=== PATIENT | female | born 1965 | race Caucasian/White ===

== ENCOUNTER 2016-11-17 09:55 | Emergency (ER) | payer BC ==
[2016-11-17] MEDS ORDERED: NS 0.9% 1000 ML* 2,000 ML IV ONE (11:07)
[2016-11-17] MEDS ORDERED: Ondansetron INJ* 2 MG/ML VIAL IV ONE (11:20)
[2016-11-17] MEDS ORDERED: diPHENhydraMINE IV* 50 MG/ML 1 ml VIAL (BENADRYL) IV ONE (11:20)
--- NOTE | 2016-11-17 11:20 | ED ---
HPI Febrile Illness - HPI Summary HPI Summary: Pt here w/ possible food poisoning. Drank 2 cartons of chocolate milk 5 days ago (expiration date October 28 2016). Thought it tasted odd but believes chocolate flavor masked this. Following day, developed nausea, vomiting, diarrhea and ab bloating. Fever last night of 103.3F - took a cool bath and acetaminophen which reduced this. She does have seizure d/o for which she takes klonopin - well controlled and no seizures since illness however she does have a migraine which started 3 days ago - Lt sided w/ photophobia. Followed by PCP for these - takes tramadol for "headaches but this doesn't touch migraines". Pain w/ deep breath in ab and head - otherwise, breathing well. Admits to missing meds 1 day a couple of days ago but has taken all meds today (ie. prozac , klonopin, etc) - History of Current Complaint Chief Complaint: EDAbdPain Time Seen by Provider: 11/17/16 10:26 Hx Obtained From: Patient, Family/Customer Success Specialist - Pain Intensity: 10 - Allergy/Home Medications Allergies/Adverse Reactions: Allergies Allergy/AdvReac Type Severity Reaction Status Date / Time Erythromycin Allergy Severe Difficulty Verified 12/12/15 11:43 Breathing Bupropion [From Wellbutrin] Allergy seizure Verified 12/12/15 11:43 Home Medications: Home Medications ALPRAZolam TAB* [Xanax TAB*] 0.5 - 1 mg PO BEDTIME PRN 11/17/16 [History Confirmed 11/17/16] FLUoxetine CAP* [PROzac CAP*] 80 mg PO DAILY 11/17/16 [History Confirmed ] clonazePAM TAB(*) [KlonoPIN TAB(*)] 1 - 2 mg PO TID PRN 11/17/16 [History Confirmed 11/17/16] traMADol TAB* [Ultram*] 50 - 150 mg PO BEDTIME PRN 11/17/16 [History Confirmed 11/17/16] PMH/Surg Hx/FS Hx/Imm Hx Previously Healthy: Yes - sinus infection 1 month ago - tx'd w/ doxycycline Endocrine/Hematology History: Denies: Hx Anticoagulant Therapy, Hx Diabetes, Hx Systemic Lupus Erythematosus, Hx Thyroid Disease, Autoimmune Disease, Other Endocrine/ Hematological Disorders Cardiovascular History: Denies: Hx Hypertension, Hx Pacemaker/ICD, Other Cardiovascular Problems/ Disorders Respiratory History: Denies: Hx Asthma, Hx Chronic Obstructive Pulmonary Disease (COPD), Other Respiratory Problems/Disorders GI History: Denies: Hx Ulcer, Other GI Disorders History: Denies: Hx Dialysis, Hx Renal Disease, Other Problems/Disorders Musculoskeletal History: Denies: Hx Rheumatoid Arthritis, Other Musculoskeletal History Sensory History: Denies: Other Sensory Impairments Opthamlomology History: Denies: Other Sensory Impairments Neurological History: Reports: Hx Headaches, Hx Migraine, Hx Seizures, Other Neuro Impairments/Disorders - tourette's d/o Denies: Hx Dementia Psychiatric History: Reports: Hx Anxiety, Hx Depression Denies: Hx Substance Abuse - Cancer History Cancer Type, Location and Year: 1992 Cervical CA Hx Chemotherapy: No - Surgical History Surgery Procedure, Year, and Place: 1992 cervical CA surgery. 2002 Removal of fallopian tube and ovary (right) and hysterectomy Infectious Disease History: Yes Infectious Disease History: Denies: Hx Hepatitis, Hx Human Immunodeficiency Virus (HIV), Traveled Outside the [place] in Last 30 Days - Family History Known Family History: Positive: Other - bone cancer, liver cancer Negative: Cardiac Disease - Social History Occupation: Unemployed Lives: With Family Alcohol Use: None Hx Substance Use: No Substance Use Type: Reports: None Hx Tobacco Use: No Smoking Status (MU): Never Smoked Tobacco Review of Systems Positive: Fever, Chills, Fatigue Eyes: Negative Negative: Sore Throat, Ear Ache - Lt side - from headache vs. residual URI?, Nasal Discharge Negative: Palpitations Negative: Shortness Of Breath, Cough Gastrointestinal: Other - see HPI Positive: no symptoms reported Musculoskeletal: Negative - no neck pain Skin: Negative Positive: Headache, Weakness - generalized - no focal deficits reported Positive: Anxious All Other Systems Reviewed And Are Negative: Yes Physical Exam Triage Information Reviewed: Yes Vital Signs On Initial Exam: Initial Vitals Temp Pulse Resp BP Pulse Ox 100.0 F 79 20 95/65 96 11/17/16 10:01 11/17/16 10:01 11/17/16 10:01 11/17/16 10:01 11/17/16 10:01 Vital Signs Reviewed: Yes Appearance: Positive: Ill-Appearing, Pain Distress - [place] Coma Scale Coma Scale Total: 15 Diagnostics - Vital Signs Vital Signs Temp Pulse Resp BP Pulse Ox 11/17/16 10:01 100.0 F 79 20 95/65 96 - Laboratory Result Diagrams: 11/17/16 11:19 11/17/16 11:19 Lab Statement: Any lab studies that have been ordered have been reviewed, and results considered in the medical decision making process. Re-Evaluation - Re-Evaluation First Eval Change: Unchanged - s/p benadryl and zofran - will allow to complete IVF and try toradol Second Eval Change: Improved - IVF and toradol are "taking the edge off" - will try PO acetaminophen; labs are unremarkable for sepsis or severe dehydration Third Eval Change: Improved - migraine resolved after oxycodone and acetaminophen 975mg as well as tolerating PO applesauce and jello - pt reports she wants to go home - feeling better Course/Dx - Course Course Of Treatment: Pt presents with 4 day h/o vomiting and diarrhea after drinking milk 5 days ago. She had a fever last night of 103F - broke w/ acetaminophen and cool bath. Here today as she can't tolerate PO and was concerned about fever last night. She feels dehydrated and has an intractable migraine. Labs were assessed and returned normal except for slightly depleted chloride and low platelets 122. She does not appear to have sepsis nor GI abnormality re: liver, pancreas, etc. Over the course of stay, she improved w/ meds and IVF - able to tolerate PO soft foods and is hungry to eat more. Would like to go home as she feels better (pt appears better as well - color is better in general, appears more energetic and comfortable - sitting up more, etc). [place] lives [place] up the [place] and states she will return to ED if sx return or new sx present. Encouraged to stay hydrated - clears and soft foods for 24-48 hours and proceed to routine diet as tolerated. Follow-up with PCP to further review migraines if these continue to be poorly controlled w/ home meds - may benefit from neurology review. - Diagnoses Provider Diagnoses: Dehydration, Nausea vomiting and diarrhea, Migraine Discharge - Discharge Plan Condition: Stable Disposition: HOME Prescriptions: Ondansetron ODT TAB* [Zofran 4 MG Odt TAB*] 4 mg PO Q8H PRN #3 tab.odt PRN Reason: Nausea Patient Education Materials: Dehydration (ED), Gastroenteritis (ED), Migraine Headache (ED) Referrals: Todd Rock MD [Primary Care Provider] - Additional Instructions: Stay hydrated with clears and soft foods for 24-48 hours and proceed to routine diet as tolerated. You may take anti-nausea medication as needed to keep fluids down and reduce repeat of dehydration. Follow-up with PCP to further review migraines if these continue to be poorly controlled with home meds - may benefit from neurology review. Call tomorrow to schedule appointment. *If you develop return of fever, vomiting, diarrhea, headache, neck pain, rash or abdominal pain, return to ED
[2016-11-17 11:35] LABS: Hematocrit 40 % (35-47); Hemoglobin 13.3 g/dl (12.0-16.0); Mean Corpuscular HGB Conc 34 g/dl (31-36); Mean Corpuscular Hemoglobin 32 pg (27-31); Mean Corpuscular Volume 96 fL (80-97); Mean Platelet Volume 8 um3 (7.4-10.4); Red Blood Count 4.13 10^6/ul (4.0-5.4); Red Cell Distribution Width 13 % (10.5-15); White Blood Count 4.5 10^3/ul (3.5-10.8)
[2016-11-17 11:45] LABS: Albumin 3.9 g/dL (3.2-5.2); BUN/Creatinine Ratio 24.1 (8-20); C Reactive Protein 166.02 mg/L (< 5.00); Calcium 8.9 mg/dL (8.6-10.3); EGFR African American 142.1 (>60); EGFR Non-African American 110.5 (>60); Potassium 3.6 mmol/L (3.5-5.0); Total Bilirubin 0.4 mg/dL (0.2-1.0); Total Protein 6.9 g/dL (6.4-8.9)
--- NOTE | 2016-11-17 11:49 | RAD ---
Indication: Chest pain. Single frontal view of the chest performed at 1125 hours was reviewed. Comparison is made with previous exam dated May 14, 2011. No mediastinal shift is noted. Heart is of normal size and configuration. Lung huynh appear clear. IMPRESSION: NO ACTIVE CARDIOPULMONARY DISEASE IS NOTED.
[2016-11-17] MEDS ORDERED: Ketorolac INJ* 30 MG/ML 1 ML VIAL IV PUSH ONE (12:48)
[2016-11-17] MEDS ORDERED: Acetaminophen TAB* 325 MG PO ONE (14:23)
[2016-11-17] MEDS ORDERED: oxyCODONE TAB* 5 MG TAB PO ONE (15:16)
[2016-11-17 15:18] LABS: Urine Bacteria Absent (Absent); Urine Bilirubin Negative (Negative); Urine Glucose Negative (Negative); Urine Nitrite Negative (Negative)
[2016-11-17 17:20] VITALS: BP 100/58
== END 2016-11-17 17:17 | disposition home or self-care (01) ==
LOC: ED 09:55
DX: E86.0 Dehydration (principal); R11.2 Nausea with vomiting, unspecified; R19.7 Diarrhea, unspecified; G43.909 Migraine, unspecified, not intractable, without status migrainosus; R53.1 Weakness; R50.9 Fever, unspecified; F41.9 Anxiety disorder, unspecified
CPT/HCPCS: 36415; 71010; 80053; 81003; 81015; 82150; 83605; 83690; 85025; 85610; 85730; 86140; 87040; 96374; 96375; 99283; A9270-GY; J1200; J1885; J2405

== ENCOUNTER 2016-11-18 10:21 | Emergency (ER) | payer BC ==
[2016-11-18] MEDS ORDERED: Metoclopramide IV* 5 MG/ML 2 ML VIAL IV ONE (11:30)
[2016-11-18] MEDS ORDERED: Morphine INJ* 4 MG/ML 1 ML SYRINGE IV ONE (11:30)
[2016-11-18] MEDS ORDERED: diPHENhydraMINE IV* 50 MG/ML 1 ml VIAL (BENADRYL) IV ONE (11:30)
[2016-11-18] MEDS ORDERED: NS 0.9% 1000 ML* 2,000 ML IV ONE (11:30)
[2016-11-18 12:24] LABS: Hematocrit 33 % (35-47); Mean Corpuscular HGB Conc 34 g/dl (31-36); Mean Corpuscular Hemoglobin 32 pg (27-31); Mean Corpuscular Volume 96 fL (80-97); Mean Platelet Volume 8 um3 (7.4-10.4); Red Cell Distribution Width 13 % (10.5-15)
[2016-11-18 12:36] LABS: Albumin 3.4 g/dL (3.2-5.2); BUN/Creatinine Ratio 26.2 (8-20); Calcium 8.5 mg/dL (8.6-10.3); EGFR African American 206.2 (>60); EGFR Non-African American 160.4 (>60); Globulin 2.8 g/dL (2-4); Potassium 3.2 mmol/L (3.5-5.0); Total Bilirubin 0.4 mg/dL (0.2-1.0); Total Protein 6.2 g/dL (6.4-8.9)
[2016-11-18 12:51] LABS: Urine Bilirubin Negative (Negative); Urine Glucose Negative (Negative); Urine Nitrite Negative (Negative)
--- NOTE | 2016-11-18 13:08 | RAD ---
HISTORY: Headache COMPARISONS: MRI dated July 27, 2002 TECHNIQUE: Multiple contiguous axial CT scans were obtained of the head without intravenous contrast. FINDINGS: HEMORRHAGE/INFARCT: There is no hemorrhage or acute infarct. MASSES/SHIFT: There is no mass or shift. EXTRA-AXIAL SPACES: There are no extra-axial fluid collections. SULCI AND VENTRICLES: There is prominence of the extra axial space along the frontal convexities bilaterally. This is developed compared to the 2003 CT examination CEREBRUM: As noted above, there is prominence of the extra-axial space along the frontal convexities bilaterally suggestive of volume loss of the frontal lobes BRAINSTEM: There are no focal parenchymal abnormalities. CEREBELLUM: There are no focal parenchymal abnormalities. VESSELS: The vessels are grossly normal. PARANASAL SINUSES: The paranasal sinuses are clear. ORBITS: The orbits are unremarkable. BONES AND SOFT TISSUE: No bone or soft tissue abnormalities are noted. OTHER: None IMPRESSION: 1. NO ACUTE INTRACRANIAL PATHOLOGY. 2. WHEN COMPARED TO THE 2003 MRI EXAMINATION, THERE ARE FINDINGS SUGGESTIVE OF VOLUME LOSS OF THE FRONTAL LOBES BILATERALLY. WHILE THIS NONSPECIFIC, THE DIFFERENTIAL INCLUDES VOLUME LOSS ASSOCIATED WITH FRONTAL LOBE SYNDROMES
--- NOTE | 2016-11-18 13:13 | RAD ---
INDICATION: Headache and neck pain greatest on RIGHT side and at base of neck. Migraine headache. COMPARISON: No relevant prior exams available on the [facility] for comparison. TECHNIQUE: Multidetector CT images foramen magnum to lung apices without contrast. Multiplanar reformation. REPORT: Foci of gas within the bilateral internal jugular veins likely related to venipuncture. Normal vertebral alignment accounting for exam positioning without spondylolisthesis or subluxation at any level. Negative for cervical vertebral body or posterior element fracture. Negative for paravertebral hematoma. Mild C5-C6 disc space narrowing and vertebral endplate osteophytosis. Multilevel mild facet joint osteoarthritis. Negative for acquired spinal stenosis. IMPRESSION: 1. No traumatic injury of the cervical spine. 2. Mild C5-C6 degenerative spondylosis and multilevel mild facet joint osteoarthritis. No CT evidence for acquired spinal stenosis.
[2016-11-18 13:33] LABS: Erythrocyte Sed Rate 73 mm/Hr (0-14)
[2016-11-18] MEDS ORDERED: Potassium Chlor TAB* 20 MEQ TAB.ER PO ONE (13:47)
[2016-11-18 15:15] VITALS: BP 90/62
--- NOTE | 2016-11-19 08:44 | ED ---
Mathew Andrade Alfonso, scribed for Jerod Berrios MD on 11/18/16 at 1111 . Headache - HPI Summary HPI Summary: This patient is a 50 year old F presenting to [facility] accompanied by with a chief complaint of worsening diffuse headaches since yesterday. The CC is described as worsening and radiating to the neck. Pt rates the pain 9/10 in severity. Symptoms aggravated by movement and bright light. Sx alleviated by position. Pt reports fever, chills, abd pain, nausea, diarrhea, neck pain, weakness, and dizziness. Pt was discharged from [facility] yesterday with provider diagnoses of dehydration, nausea, vomiting, diarrhea, and migraine. PMHx of cluster migraines and anxiety. - History Of Current Complaint Chief Complaint: EDGeneral Stated Complaint: NECK PAIN/ABD PAIN/HEADACHE Time Seen by Provider: 11/18/16 10:52 Hx Obtained From: Patient Onset/Duration: Sudden Onset, Started days ago - Yesterday, Worse Since Currently Pain Is: Current Pain Scale(0-10)= - 9/10, Severe Timing: Constant Location of Headache: Diffuse Radiates to: Neck Aggravating Factor: Bright Lights, Other - Movement Allevating Factors: Position Change Associated Signs And Symptoms: Other (Noted In Comments) - Positive fever, chills, abd pain, nausea, diarrhea, neck pain, weakness, and dizziness. - Allergies/Home Medications Allergies/Adverse Reactions: Allergies Allergy/AdvReac Type Severity Reaction Status Date / Time Erythromycin Allergy Severe Difficulty Verified 12/12/15 11:43 Breathing Bupropion [From Wellbutrin] Allergy seizure Verified 12/12/15 11:43 PMH/Surg Hx/FS Hx/Imm Hx Endocrine/Hematology History: Denies: Hx Anticoagulant Therapy, Hx Diabetes, Hx Systemic Lupus Erythematosus, Hx Thyroid Disease, Other Endocrine/Hematological Disorders Cardiovascular History: Denies: Hx Hypertension, Hx Pacemaker/ICD, Other Cardiovascular Problems/ Disorders Respiratory History: Denies: Hx Asthma, Hx Chronic Obstructive Pulmonary Disease (COPD), Other Respiratory Problems/Disorders GI History: Denies: Hx Ulcer, Other GI Disorders History: Denies: Hx Dialysis, Hx Renal Disease, Other Problems/Disorders Musculoskeletal History: Denies: Hx Rheumatoid Arthritis, Other Musculoskeletal History Sensory History: Denies: Other Sensory Impairments Opthamlomology History: Denies: Other Sensory Impairments Neurological History: Reports: Hx Headaches, Hx Migraine, Hx Seizures, Other Neuro Impairments/Disorders - tourette's d/o Denies: Hx Dementia Psychiatric History: Reports: Hx Anxiety, Hx Depression Denies: Hx Substance Abuse - Cancer History Cancer Type, Location and Year: 1992 Cervical CA Hx Chemotherapy: No - Surgical History Surgery Procedure, Year, and Place: 1992 cervical CA surgery. 2002 Removal of fallopian tube and ovary (right) and hysterectomy Infectious Disease History: Yes Infectious Disease History: Denies: Hx Hepatitis, Hx Human Immunodeficiency Virus (HIV), Traveled Outside the [place] in Last 30 Days - Family History Known Family History: Positive: Other - bone cancer, liver cancer Negative: Cardiac Disease - Social History Alcohol Use: None Hx Substance Use: No Substance Use Type: Reports: None Hx Tobacco Use: No Smoking Status (MU): Never Smoked Tobacco Review of Systems Positive: Fever, Chills Positive: Abdominal Pain, Diarrhea, Nausea Positive: Other - Positive neck pain, Neurological: Other - Positive dizziness Positive: Headache - Diffuse, Weakness All Other Systems Reviewed And Are Negative: Yes Physical Exam - Summary Physical Exam Summary: VITAL SIGNS: Reviewed. GENERAL: ~Patient is a well-developed and anxious female who is lying in the stretcher. ~Patient is some distress secondary to neck pain. HEAD AND FACE: No signs of trauma. ~No ecchymosis, hematomas or skull depressions. No sinus tenderness. EYES: PERRLA, EOMI x 2, No injected conjunctiva, no nystagmus. No photophobia. EARS: Hearing grossly intact. Ear canals and tympanic membranes are within normal limits. MOUTH: Oropharynx within normal limits. NECK: Supple, trachea is midline, no adenopathy, no JVD, no carotid bruit, no c- spine tenderness, neck with full ROM. No meningeal signs, no Kernig's or brudzinskis signs. Bilateral sternocleidomastoid tenderness. CHEST: Symmetric, no tenderness at palpation LUNGS: Clear to auscultation bilaterally. No wheezing or crackles. CVS: Regular rate and rhythm, S1 and S2 present, no murmurs or gallops appreciated. ABDOMEN: Soft, non-tender. No signs of distention. No rebound no guarding, and no masses palpated. Bowel sounds are normal. EXTREMITIES: FROM in all major joints, no edema, no cyanosis or clubbing. NEURO: Alert and oriented x 3. No acute neurological deficits. Speech is normal and follows commands. SKIN: Dry and warm Triage Information Reviewed: Yes Vital Signs On Initial Exam: Initial Vitals Temp Pulse Resp BP Pulse Ox 98 F 72 22 94/66 98 11/18/16 10:23 11/18/16 10:23 11/18/16 10:23 11/18/16 10:23 11/18/16 10:23 Vital Signs Reviewed: Yes - [place]arson Coma Scale Coma Scale Total: 15 Diagnostics - Vital Signs Vital Signs Temp Pulse Resp BP Pulse Ox 11/18/16 10:54 97.6 F 66 18 106/64 96 11/18/16 10:23 98 F 72 22 94/66 98 - Laboratory Lab Results: Lab Results 11/18/16 11/18/16 11/18/16 Range/Units 12:00 12:00 12:00 WBC 5.0 (3.5-10.8) 10^3/ul RBC 3.40 L (4.0-5.4) 10^6/ul Hgb 11.0 L (12.0-16.0) g/dl Hct 33 L (35-47) % MCV 96 (80-97) fL MCH 32 H (27-31) pg MCHC 34 (31-36) g/dl RDW 13 (10.5-15) % Plt Count 127 L (150-450) 10^3/ul MPV 8 (7.4-10.4) um3 Neut % (Auto) 76.5 (38-83) % Lymph % (Auto) 15.6 L (25-47) % [place] % (Auto) 7.7 (1-9) % Eos % (Auto) 0 (0-6) % Baso % (Auto) 0.2 (0-2) % Absolute Neuts (auto) 3.8 (1.5-7.7) 10^3/ul Absolute Lymphs (auto) 0.8 L (1.0-4.8) 10^3/ul Absolute Monos (auto) 0.4 (0-0.8) 10^3/ul Absolute Eos (auto) 0 (0-0.6) 10^3/ul Absolute Basos (auto) 0 (0-0.2) 10^3/ul Absolute Nucleated RBC 0 10^3/ul Nucleated RBC % 0 ESR 73 H (0-14) mm/Hr INR (Anticoag Therapy) (0.89-1.11) APTT (26.0-36.3) seconds Carbon Monoxide Screen (<3.5) % Sodium 136 (133-145) mmol/L Potassium 3.2 L (3.5-5.0) mmol/L Chloride 99 L (101-111) mmol/L Carbon Dioxide 29 (22-32) mmol/L Anion Gap 8 (2-11) mmol/L BUN 11 (6-24) mg/dL Creatinine 0.42 L (0.51-0.95) mg/dL Est GFR ( Amer) 206.2 (>60) Est GFR (Non-Af Amer) 160.4 (>60) BUN/Creatinine Ratio 26.2 H (8-20) Glucose 113 H (70-100) mg/dL Lactic Acid 0.6 (0.5-2.0) mmol/L Calcium 8.5 L (8.6-10.3) mg/dL Total Bilirubin 0.40 (0.2-1.0) mg/dL AST 36 (13-39) U/L ALT 49 (7-52) U/L Alkaline Phosphatase 107 H (34-104) U/L Total Protein 6.2 L (6.4-8.9) g/dL Albumin 3.4 (3.2-5.2) g/dL Globulin 2.8 (2-4) g/dL Albumin/Globulin Ratio 1.2 (1-3) Urine Color Urine Appearance Urine pH (5-9) Ur Specific [place] (1.010-1.030) Urine Protein (Negative) Urine Ketones (Negative) Urine Blood (Negative) Urine Nitrate (Negative) Urine Bilirubin (Negative) Urine Urobilinogen (Negative) Ur Leukocyte Esterase (Negative) Urine Glucose (Negative) 11/18/16 11/18/16 11/18/16 Range/Units 12:00 12:20 13:10 WBC (3.5-10.8) 10^3/ul RBC (4.0-5.4) 10^6/ul Hgb (12.0-16.0) g/dl Hct (35-47) % MCV (80-97) fL MCH (27-31) pg MCHC (31-36) g/dl RDW (10.5-15) % Plt Count (150-450) 10^3/ul MPV (7.4-10.4) um3 Neut % (Auto) (38-83) % Lymph % (Auto) (25-47) % [place] % (Auto) (1-9) % Eos % (Auto) (0-6) % Baso % (Auto) (0-2) % Absolute Neuts (auto) (1.5-7.7) 10^3/ul Absolute Lymphs (auto) (1.0-4.8) 10^3/ul Absolute Monos (auto) (0-0.8) 10^3/ul Absolute Eos (auto) (0-0.6) 10^3/ul Absolute Basos (auto) (0-0.2) 10^3/ul Absolute Nucleated RBC 10^3/ul Nucleated RBC % ESR (0-14) mm/Hr INR (Anticoag Therapy) 1.05 (0.89-1.11) APTT 29.1 (26.0-36.3) seconds Carbon Monoxide Screen 3.5 H (<3.5) % Sodium (133-145) mmol/L Potassium (3.5-5.0) mmol/L Chloride (101-111) mmol/L Carbon Dioxide (22-32) mmol/L Anion Gap (2-11) mmol/L BUN (6-24) mg/dL Creatinine (0.51-0.95) mg/dL Est GFR ( Amer) (>60) Est GFR (Non-Af Amer) (>60) BUN/Creatinine Ratio (8-20) Glucose (70-100) mg/dL Lactic Acid (0.5-2.0) mmol/L Calcium (8.6-10.3) mg/dL Total Bilirubin (0.2-1.0) mg/dL AST (13-39) U/L ALT (7-52) U/L Alkaline Phosphatase (34-104) U/L Total Protein (6.4-8.9) g/dL Albumin (3.2-5.2) g/dL Globulin (2-4) g/dL Albumin/Globulin Ratio (1-3) Urine Color Yellow Urine Appearance Clear Urine pH 6.0 (5-9) Ur Specific [place] 1.020 (1.010-1.030) Urine Protein Negative (Negative) Urine Ketones Negative (Negative) Urine Blood Negative (Negative) Urine Nitrate Negative (Negative) Urine Bilirubin Negative (Negative) Urine Urobilinogen Negative (Negative) Ur Leukocyte Esterase Negative (Negative) Urine Glucose Negative (Negative) Result Diagrams: 11/18/16 12:00 11/18/16 12:00 Lab Statement: Any lab studies that have been ordered have been reviewed, and results considered in the medical decision making process. - CT Brain CT CT Interpretation Completed By: Radiologist - 1. NO ACUTE INTRACRANIAL PATHOLOGY. 2. WHEN COMPARED TO THE 2003 MRI EXAMINATION, THERE ARE FINDINGS SUGGESTIVE OF VOLUME LOSS OF THE FRONTAL LOBES BILATERALLY. WHILE THIS NONSPECIFIC, THE DIFFERENTIAL INCLUDES VOLUME LOSS ASSOCIATED WITH FRONTAL LOBE SYNDROMES C-Spine CT CT Interpretation Completed By: Radiologist - 1. No traumatic injury of the cervical spine. 2. Mild C5-C6 degenerative spondylosis and multilevel mild facet joint osteoarthritis. No CT evidence for acquired spinal stenosis. - EKG 1145 Cardiac Rate: NL - BPM 63 EKG Rhythm: Sinus Rhythm EKG Interpretation: No ST elevation Headache Course/Dx - Course Course Of Treatment: This patient is a 50 year old F presenting to [facility] accompanied by with a chief complaint of worsening diffuse headaches since yesterday. The CC is described as worsening and radiating to the neck. Pt rates the pain 9/10 in severity. Symptoms aggravated by movement and bright light. Sx alleviated by position. Pt reports fever, chills, abd pain, nausea, diarrhea, neck pain, weakness, and dizziness. Pt was discharged from [facility] yesterday with provider diagnoses of dehydration, nausea, vomiting, diarrhea, and migraine. PMHx of cluster migraines and anxiety. Assessment/Plan: Test results show slight anemia. Potassium of 3.2 for which patient was given potassium chloride. Glucose 113. Urinalysis negative for UTI. I decided to do a CT of brain and neck because the patient was having neck and headaches. Pt has a history of migraine headaches but these are different headaches. Brain CT reveals 1. NO ACUTE INTRACRANIAL PATHOLOGY. 2. WHEN COMPARED TO THE 2003 MRI EXAMINATION, THERE ARE FINDINGS SUGGESTIVE OF VOLUME LOSS OF THE FRONTAL LOBES BILATERALLY. WHILE THIS NONSPECIFIC, THE DIFFERENTIAL INCLUDES VOLUME LOSS ASSOCIATED WITH FRONTAL LOBE SYNDROMES C-Spine CT reveals 1. No traumatic injury of the cervical spine. 2. Mild C5-C6 degenerative spondylosis and multilevel mild facet joint osteoarthritis. No CT evidence for acquired spinal stenosis. I am not worried about meningitis because patient does not have a fever or meningeal signs. Patient was dealing with diarrhea, so stool culture were order, which were negative for C diff. Patient given iv fluid , Reglan, Benadryl and morphine. After this treatment, symptoms have resolved. Patient reports no neck pain or headache. Patient is ambulating without normal gait and reports she is feeling better. Therefore, I discussed my findings with the patient and she will be d/c home with PCP follow up. I instructed the patient if she develops any increase in fever, neck pain, headache, photophobia , or any other symptoms to return to the ED immediately. Pt is hemodynamically stable and A&Ox3. - Diagnoses Differential Diagnosis/HQI/PQRI: Migraine, Tension Headache, Other - Nausea, vomiting and diarrhea. Provider Diagnoses: Diarrhea, Headache, Neck pain Discharge - Discharge Plan Condition: Stable Disposition: HOME Prescriptions: Hydrocodone-Acetaminophen [[place] 5-325 mg] 1 tab PO Q6H PRN #10 tab MDD 4 tabs / day PRN Reason: Pain Methocarbamol [Robaxin-750 MG TAB] 750 mg PO TID #9 tab Patient Education Materials: Acute Diarrhea (ED), Acute Headache (ED), Acute Neck Pain (ED) Referrals: Todd Rock MD [Primary Care Provider] - 2 Days The documentation as recorded by the Mathew regalado Alfonso accurately reflects the service I personally performed and the decisions made by me, Jerod Berrios MD.
== END 2016-11-18 15:45 | disposition home or self-care (01) ==
LOC: ED 10:21
DX: R19.7 Diarrhea, unspecified (principal); R51 Headache; M54.2 Cervicalgia; R50.9 Fever, unspecified; R10.9 Unspecified abdominal pain; R11.0 Nausea; R53.1 Weakness; R42 Dizziness and giddiness
CPT/HCPCS: 36415; 70450; 72125; 80053; 81003; 82375; 83605; 83630; 85025; 85610; 85652; 85730; 87040; 87045; 87046; 87493; 93005; 96374; 96375; 99283; A9270-GY; J1200; J2270

== ENCOUNTER 2016-12-06 12:42 | Inpatient (IN) | payer BC ==
[2016-12-06 15:47] LABS: Hematocrit 41 % (35-47); Hemoglobin 13.4 g/dl (12.0-16.0); Mean Corpuscular HGB Conc 33 g/dl (31-36); Mean Corpuscular Hemoglobin 32 pg (27-31); Mean Corpuscular Volume 98 fL (80-97); Mean Platelet Volume 8 um3 (7.4-10.4); Red Blood Count 4.24 10^6/ul (4.0-5.4); Red Cell Distribution Width 14 % (10.5-15); White Blood Count 6.7 10^3/ul (3.5-10.8)
[2016-12-06] MEDS ORDERED: NS 0.9% 1000 ML* 1,000 ML IV ONE (16:59)
[2016-12-06] MEDS ORDERED: HYDROmorphone* 1 MG/ML 1 ML SYR IV SLOW PU ONE ×2 (16:59→18:39)
[2016-12-06] MEDS ORDERED: Ondansetron INJ* 2 MG/ML VIAL IV ONE (16:59)
[2016-12-06] MEDS ORDERED: HYDROmorphone* 1 MG/ML 1 ML SYR IM ONE (17:11)
[2016-12-06 17:55] LABS: Albumin 3.9 g/dL (3.2-5.2); BUN/Creatinine Ratio 23.4 (8-20); C Reactive Protein 57.29 mg/L (< 5.00); Calcium 9.6 mg/dL (8.6-10.3); EGFR African American 180.4 (>60); EGFR Non-African American 140.3 (>60); Globulin 4.3 g/dL (2-4); Total Bilirubin 0.4 mg/dL (0.2-1.0); Total Protein 8.2 g/dL (6.4-8.9)
[2016-12-06] MEDS ORDERED: cefTRIAXone VIAL(*) 1,000 MG in NS 0.9% 50 ML* 50 ML IVPB ONE (18:45)
--- NOTE | 2016-12-06 18:56 | ED ---
Angeles Andrade Edward, scribed for Cookie Nascimento MD on 12/06/16 at 1622 . Abdominal Pain/Female - HPI Summary HPI Summary: 51 y/o female presents to ED c/o ABD pain for the past 2 weeks ago. The patient also c/o vomiting and 1x diarrhea. The patient was admitted in the ED 2 weeks ago for the same symptoms. Since leaving the ED 2 weeks ago, the patient has not had a bowel movements in 10 days. Associated sx: lower back pain that shoots down the legs, fevers (high 101.7), and neck pain. Denies dysuria. no smoker, drugs, etoh. PMHx turrets, migraines - History of Current Complaint Chief Complaint: EDAbdPain Stated Complaint: ABD PAIN Hx Obtained From: Patient Onset/Duration: Gradual Onset, Lasting Weeks - 2 weeks Timing: Constant Severity Currently: Severe Pain Intensity: 10 Pain Scale Used: 0-10 Numeric Location: Diffuse Associated Signs and Symptoms: Positive: Fever, Back Pain - Shoots down to bilateral legs, Constipation - No bowel movements in 10 days, Nausea, Vomiting, Diarrhea, Other: - Neck pain. Negative: Urinary Symptoms Allergies/Adverse Reactions: Allergies Allergy/AdvReac Type Severity Reaction Status Date / Time Erythromycin Allergy Severe Difficulty Verified 12/12/15 11:43 Breathing Bupropion [From Wellbutrin] Allergy seizure Verified 12/12/15 11:43 PMH/Surg Hx/FS Hx/Imm Hx Previously Healthy: No Endocrine/Hematology History: Denies: Hx Anticoagulant Therapy, Hx Diabetes, Hx Systemic Lupus Erythematosus, Hx Thyroid Disease, Other Endocrine/Hematological Disorders Cardiovascular History: Denies: Hx Hypertension, Hx Pacemaker/ICD, Other Cardiovascular Problems/ Disorders Respiratory History: Denies: Hx Asthma, Hx Chronic Obstructive Pulmonary Disease (COPD), Other Respiratory Problems/Disorders GI History: Denies: Hx Ulcer, Other GI Disorders History: Denies: Hx Dialysis, Hx Renal Disease, Other Problems/Disorders Musculoskeletal History: Denies: Hx Rheumatoid Arthritis, Other Musculoskeletal History Sensory History: Denies: Other Sensory Impairments Opthamlomology History: Denies: Other Sensory Impairments Neurological History: Reports: Hx Headaches, Hx Migraine, Hx Seizures, Other Neuro Impairments/Disorders - tourette's d/o Denies: Hx Dementia Psychiatric History: Reports: Hx Anxiety, Hx Depression Denies: Hx Substance Abuse - Cancer History Cancer Type, Location and Year: 1992 Cervical CA Hx Chemotherapy: No - Surgical History Surgery Procedure, Year, and Place: 1992 cervical CA surgery. 2002 Removal of fallopian tube and ovary (right) and hysterectomy Infectious Disease History: Denies: Hx Hepatitis, Hx Human Immunodeficiency Virus (HIV), Traveled Outside the [place] in Last 30 Days - Family History Known Family History: Positive: Other - bone cancer, liver cancer Negative: Cardiac Disease - Social History Alcohol Use: None Hx Substance Use: No Substance Use Type: Reports: None Hx Tobacco Use: No Smoking Status (MU): Never Smoked Tobacco Review of Systems Positive: Fever Eyes: Negative ENT: Negative Cardiovascular: Negative Respiratory: Negative Positive: Abdominal Pain, Vomiting, Diarrhea, Nausea, Other - Constipation Genitourinary: Negative Negative: dysuria Positive: Arthralgia - Back pain shoots down both legs, neck pain Skin: Negative Neurological: Negative Psychological: Normal All Other Systems Reviewed And Are Negative: Yes Physical Exam Triage Information Reviewed: Yes Vital Signs On Initial Exam: Initial Vitals Temp Pulse Resp BP Pulse Ox 99.1 F 81 20 105/79 98 12/06/16 12:45 12/06/16 12:45 12/06/16 12:45 12/06/16 12:45 12/06/16 12:45 Vital Signs Reviewed: Yes Appearance: Positive: Well-Appearing, No Pain Distress Skin: Positive: Warm, Skin Color Reflects Adequate Perfusion, Dry Eyes: Positive: EOMI, LENARD ENT: Positive: Pharynx normal, TMs normal Neck: Positive: Supple, Nontender Respiratory/Lung Sounds: Positive: Clear to Auscultation, Breath Sounds Present. Negative: Rales, Rhonchi, Wheezes Cardiovascular: Positive: RRR, Other - No gallop. Negative: Murmur, Rub Abdomen Description: Positive: Soft, Other: - Diffusely tender. No rebound. Negative: Distended, Guarding Bowel Sounds: Positive: Present Musculoskeletal: Positive: Strength/ROM Intact. Negative: Edema Left, Edema Right Neurological: Positive: Sensory/Motor Intact, Alert, Oriented to Person Place, Time, CN Intact II-III Psychiatric: Positive: Affect/Mood Appropriate Diagnostics - Vital Signs Vital Signs Temp Pulse Resp BP Pulse Ox 12/06/16 12:45 99.1 F 81 20 105/79 98 - Laboratory Lab Results: Lab Results 12/06/16 12/06/16 Range/Units 15:15 15:15 WBC 6.7 (3.5-10.8) 10^3/ul RBC 4.24 (4.0-5.4) 10^6/ul Hgb 13.4 (12.0-16.0) g/dl Hct 41 (35-47) % MCV 98 H (80-97) fL MCH 32 H (27-31) pg MCHC 33 (31-36) g/dl RDW 14 (10.5-15) % Plt Count 283 (150-450) 10^3/ul MPV 8 (7.4-10.4) um3 Neut % (Auto) 73.7 (38-83) % Lymph % (Auto) 17.9 L (25-47) % Arthur % (Auto) 6.8 (1-9) % Eos % (Auto) 0.7 (0-6) % Baso % (Auto) 0.9 (0-2) % Absolute Neuts (auto) 4.9 (1.5-7.7) 10^3/ul Absolute Lymphs (auto) 1.2 (1.0-4.8) 10^3/ul Absolute Monos (auto) 0.5 (0-0.8) 10^3/ul Absolute Eos (auto) 0 (0-0.6) 10^3/ul Absolute Basos (auto) 0.1 (0-0.2) 10^3/ul Absolute Nucleated RBC 0 10^3/ul Nucleated RBC % 0.1 Sodium Pending Potassium Pending Chloride Pending Carbon Dioxide Pending Anion Gap Pending BUN Pending Creatinine Pending Est GFR ( Amer) Pending Est GFR (Non-Af Amer) Pending BUN/Creatinine Ratio Pending Glucose Pending Calcium Pending Total Bilirubin Pending AST Pending ALT Pending Alkaline Phosphatase Pending C-Reactive Protein Pending Total Protein Pending Albumin Pending Globulin Pending Albumin/Globulin Ratio Pending Lipase Pending Beta HCG, Quant 1.89 mIU/mL Result Diagrams: 12/06/16 15:15 12/06/16 15:15 Lab Statement: Any lab studies that have been ordered have been reviewed, and results considered in the medical decision making process. Abdominal Pain Fem Course/Dx - Course Course Of Treatment: 51 yo female with likely typhoid fever seen by me in the lobby with constipation, has, abdominal pain and fever. We have not been able to find a room for her but her case has been discussed with Dr. Davis who agrees pt needs to evaluated for typhoid. A dose of IV ceftriaxone has been ordered for her as well as pain meds an fluids. Pt will be signed out to Dr. Aguero - Diagnoses Provider Diagnoses: Typhoid fever Discharge - Discharge Plan Condition: Stable Disposition: ADMITTED TO [facility] The documentation as recorded by the Angeles regalado Edward accurately reflects the service I personally performed and the decisions made by me, Cookie Nascimento MD.
[2016-12-06] MEDS ORDERED: cefTRIAXone VIAL(*) 1,000 MG in NS 0.9% 50 ML* 50 ML IVPB SCH (20:00)
[2016-12-06] MEDS ORDERED: Ondansetron INJ* 2 MG/ML VIAL IV PRN (20:01)
[2016-12-06] MEDS ORDERED: NS 0.9% 1000 ML* 2,000 ML IV ONE (20:01)
[2016-12-06] MEDS ORDERED: Acetaminophen TAB* 325 MG PO PRN (20:01)
[2016-12-06] MEDS ORDERED: Morphine INJ* 4 MG/ML 1 ML SYRINGE IV PRN (20:01)
[2016-12-06] MEDS ORDERED: Magnesium Hydroxide LIQ* 30 ML UDC PO PRN (20:01)
[2016-12-06] MEDS ORDERED: ALPRAZolam TAB* 0.5 MG PO PRN (20:06)
[2016-12-06] MEDS ORDERED: NS 0.9% 1000 ML* 1,000 ML IV SCH (20:15)
[2016-12-06] MEDS ORDERED: Senna TAB PO SCH (21:00)
[2016-12-06] MEDS ORDERED: Iohexol 300* (CONTRAST) 10 ML SDV IV ONE (21:45)
[2016-12-06 22:20] LABS: Potassium 3.8 mmol/L (3.5-5.0)
[2016-12-06] MEDS: Docusate CAP* 100 MG PO SCH (23:04)
[2016-12-06] MEDS: clonazePAM TAB(*) 1 MG PO SCH (23:05)
[2016-12-06] MEDS: Morphine INJ* 4 MG/ML 1 ML SYRINGE IV PRN (23:54)
[2016-12-07 00:57] LABS: Urine Bilirubin Negative (Negative); Urine Glucose Negative (Negative); Urine Nitrite Negative (Negative)
[2016-12-07] MEDS: Morphine INJ* 4 MG/ML 1 ML SYRINGE IV PRN ×5 (02:07→11:57)
[2016-12-07] MEDS ORDERED: Al Hydrox/Mg Hydrox/Simet LIQ* 30 ML UDC PO PRN (04:47)
[2016-12-07 05:24] LABS: Hematocrit 32 % (35-47); Hemoglobin 10.6 g/dl (12.0-16.0); Mean Corpuscular HGB Conc 33 g/dl (31-36); Mean Corpuscular Hemoglobin 32 pg (27-31); Mean Corpuscular Volume 96 fL (80-97); Mean Platelet Volume 8 um3 (7.4-10.4); Red Blood Count 3.32 10^6/ul (4.0-5.4); Red Cell Distribution Width 13 % (10.5-15)
[2016-12-07 05:37] LABS: BUN/Creatinine Ratio 17.8 (8-20); Calcium 8.1 mg/dL (8.6-10.3); EGFR African American 189.7 (>60); EGFR Non-African American 147.5 (>60); Potassium 3.7 mmol/L (3.5-5.0)
--- NOTE | 2016-12-07 07:48 | RAD ---
INDICATION: Abdominal pain. COMPARISON: Comparison is made with a prior CT of the abdomen and pelvis from December 12, 2015. TECHNIQUE: A CT scan of the abdomen and pelvis was performed with intravenous and oral contrast following intravenous injection of 80 ml of Omnipaque 300 nonionic contrast. Contiguous axial sections were obtained from the lung bases through the symphysis pubis. Images were reconstructed in the coronal and sagittal planes. FINDINGS: There is mild dependent bilateral lower lobe subsegmental atelectasis. No pleural effusion is present. There are bilateral breast implants which are partially visualized on this study. The liver and spleen are normal in size without significant focal abnormality. The gallbladder appears distended. No calcified gallstones are noted. The pancreas appears to be within normal limits. The kidneys and adrenal glands are normal in size. No hydronephrosis is seen. No significant focal renal abnormality is seen. The aorta is normal in caliber and demonstrates homogeneous contrast opacification. No significant enlarged retroperitoneal lymph nodes are seen. The stomach, small and large bowel appear nondistended. The appendix is within normal limits. There is no evidence for diverticulitis or colitis. The patient is status post hysterectomy. No free intraperitoneal air or fluid is seen. No significant focal osseous abnormality is seen. IMPRESSION: 1. NO EVIDENCE FOR ACUTE FINDING OR CAUSE FOR THE PATIENT'S ABDOMINAL PAIN IS SEEN. 2. STATUS POST HYSTERECTOMY.
--- NOTE | 2016-12-07 08:21 | HP ---
CC: Dr. Rock * PRIMARY CARE PROVIDER: Dr. Rock. ATTENDING PHYSICIAN WHILE IN THE HOSPITAL: Dr. Derek Lagos * (report dictated by Vito Smalls NP) CHIEF COMPLAINT: 1. Aching all over. 2. Abdominal discomfort. 3. Constipation. HISTORY OF PRESENT ILLNESS: Ms. Terrazas is a 51-year-old female patient, who has a history of depression, Tourette's, anxiety, chronic migraines, with history of chronic pain. She comes to the ER today, states she was here 2 weeks ago having 2 days of diarrhea, stool cultures were sent and after the ER visit about 24 to 48 hours, she came back positive for salmonella. Her primary care provider prescribed Levaquin, unfortunately though she only took 1 dose of that , it made her nauseous and she stopped taking the medications. The patient, however, though was becoming febrile, having increasing pain, feeling constipated, feeling bloated, having abdominal distention, she felt her abdomen was distended and she was having fevers as high as 101.7 according to her at home. She was concerned because of the constipation, the fact that she was having more diarrhea, she was feeling nauseous and vomiting, she was aching allover, she just was not feeling very well, so she decided to come back to the ER today to be reevaluated. She was evaluated in the ED, there was concern because of the abdominal discomfort and the fact that she had reported fevers at home and she was not taking and tolerating her antibiotics well, so the hospitalist service was asked to evaluate for admission. PAST MEDICAL HISTORY: Significant for: 1. Depression. 2. Tourette's. 3. Anxiety. 4. Chronic pain. 5. Migraines. PAST SURGICAL HISTORY: She has had: 1. Hysterectomy. 2. Salpingo-oophorectomy bilaterally. 3. C section. FAMILY HISTORY: Mother had a history of asthma, father had ND. SOCIAL HISTORY: She does not smoke, does not drink. Surrogate decision maker is her . ALLERGIES TO MEDICATIONS: Include ERYTHROMYCIN and WELLBUTRIN. HOME MEDICATIONS: Home meds according to the list that she gave me include: 1. Clonazepam 1 mg p.o. t.i.d. 2. Zofran 4 mg every 8 hours as needed. 3. Xanax 0.5 mg at bedtime as needed. 4. Prozac 80 mg daily. REVIEW OF SYSTEMS: There is no documented fever here, but she did have one at home. She denied having any significant weight change. There was no double vision. There was no ear discharge. She denies having any rhinorrhea. There is no sore throat. No thyroid enlargement. Denied having any chest pain. There is no orthopnea. There is no nocturnal dyspnea. There was abdominal cramping and discomfort per my HPI. There is no dysuria. No frequency. No seizure. There is no loss of consciousness, no pruritus, and no skin ulcerations. Review of 14 systems completed, all others negative. PHYSICAL EXAMINATION GENERAL: At this time, Ms. Terrazas is a 51-year-old female patient, she appears well- nourished, well-developed, she is sitting in the ER stretcher, does not appear to be in any acute distress. VITAL SIGNS: Blood pressure of 129/79, pulse 78, respirations 16, O2 sat 100%, temperature 98.5. HEENT: Head: Atraumatic, normocephalic. Eyes: EOMs are intact. Sclerae anicteric and not pale. Throat: Oral mucosa appears to be dry. No oropharyngeal erythema. NECK: Supple. LUNGS: Clear to auscultation bilaterally. No wheezes, rales, or rhonchi. HEART: Sounds S1, S2. Regular rate and rhythm. No murmurs, rubs, or gallops. ABDOMEN: Soft, it was flat, it did not appear to be distended to me. Bowel sounds are present. She was tender in the left lower quadrant, but there was no other tenderness on exam. EXTREMITIES: Pulses were 2+ throughout. She had no peripheral edema. She is able to move all 4 extremities with 5/5 strength. NEUROLOGICAL: She is awake, alert, and oriented x3. Tongue midline. Nurse Prn were equal. She had no gross focal deficits. SKIN: Grossly intact. DIAGNOSTIC STUDIES/LAB DATA: Labs today, most of which are pending, revealed WBC of 6.7, RBC of 4.24, hemoglobin 13.4, hematocrit 21, platelet count 283. The sodium, potassium, chloride pending. The bicarb is 27. BUN 11, creatinine 0.47, glucose 84, lactic acid 1.5, calcium 9.6. Total bili 0.4, AST 19, ALT 16 , lipase is normal at 20. Albumin was 3.9. Old medical records are reviewed. ASSESSMENT AND PLAN: Mr. Terrazas is a 51-year-old female patient, coming in to the ER today with complaints of abdominal discomfort, having diarrhea 2 weeks ago and then stopped taking her Levaquin. The patient today came back today with complaints of abdominal discomfort in addition to this aching all over and fever. We were asked to evaluate for admission. She will be admitted under observation status for: 1. Abdominal pain. I suspect this is probably related to the salmonella, though she is not having any diarrhea. But she is certainly feeling, she is aching all over. She is having nausea, vomiting, fever, and abdominal cramping. She is not having any diarrhea. She has been having fatigue, malaise , and just not feeling well. The plan at this point is to go ahead and put her on Rocephin. I am going to get a CT of the abdomen and pelvis. I am going to touch base with Dr. Guajardo, and actually she has not had a bowel movement now in several days, I am going to put her on stool softeners for constipation and some laxatives to see if that helps. We will hydrate her, give her a couple of L of fluid, normal saline at 100 an hour, in addition of this, we will go ahead and check blood cultures and we will continue to follow closely. 2. Depression and anxiety. Continue meds as prescribed and supportive care. 3. History of chronic pain. She has IV morphine is available, we will continue this. 4. History of Tourette's, supportive care. 5. History of migraines, not an active issue currently, we will continue to follow. 6. DVT prophylaxis: She is a low risk, she will be placed on SCDs. 7. Code status: She is a full code. 8. Fluids, electrolytes, nutrition: She can have a clear liquid diet. TIME SPENT: Time spent on this admission was approximately 60 minutes, greater than half the time was spent [id number] with the patient, obtaining my history and physical, the other time was spent going over the plan of care with the patient and implementing my plan of care. I did discuss the plan of care with my attending, Dr. Lagos; he is in agreement. VITO SMALLS NP [id number]/[facility] #: [id number] [facility]OSPITALFarshad
[2016-12-07] MEDS: Docusate CAP* 100 MG PO SCH (09:15)
[2016-12-07] MEDS: FLUoxetine CAP* 20 MG PO SCH (09:15)
[2016-12-07] MEDS: clonazePAM TAB(*) 1 MG PO SCH ×3 (09:15→21:43)
[2016-12-07] MEDS ORDERED: Polyethylene Glycol 3350* 17 GM PACKET PO PRN (09:57)
--- NOTE | 2016-12-07 10:05 | PN ---
Subjective Date of Service: 12/07/16 Interval History: Headache entire head not like her usual migraines which are unilateral. One loose stool today. Mild cough. Some pain in her legs. Two cats in her home. No others in her home have been ill. Objective Active Medications: Al Hydrox/Mg Hydrox/Simethicone (Maalox Plus*) 30 ml PO Q6H PRN PRN Reason: INDIGESTION Last Admin: 12/07/16 05:57 Dose: 30 ml Alprazolam (Xanax Tab*) 0.5 mg PO BEDTIME PRN PRN Reason: ANXIETY Clonazepam (Klonopin Tab(*)) 1 mg PO TID [facility] Last Admin: 12/07/16 09:15 Dose: 1 mg Fluoxetine HCl (Prozac Cap*) 80 mg PO DAILY [facility] Last Admin: 12/07/16 09:15 Dose: 80 mg Magnesium Hydroxide (Milk Of MagnFirefly Mobile Liq*) 30 ml PO Q6H PRN PRN Reason: CONSTIPATION Morphine Sulfate (Morphine Inj (Syringe)*) 4 mg IV Q2H PRN PRN Reason: PAIN Last Admin: 12/07/16 09:16 Dose: 4 mg Ondansetron HCl (Zofran Inj*) 4 mg IV Q6H PRN PRN Reason: NAUSEA Polyethylene Glycol/Electrolytes (Miralax*) 34 gm PO DAILY PRN PRN Reason: CONSTIPATION Vital Signs 12/06/16 12/06/16 12/06/16 20:00 20:16 20:30 Temperature Pulse Rate 83 80 Respiratory 16 Rate Blood Pressure 118/76 120/95 (mmHg) O2 Sat by Pulse 98 100 Oximetry 12/06/16 12/06/16 12/06/16 21:35 22:04 23:04 Temperature 98.4 F Pulse Rate 83 Respiratory 19 21 21 Rate Blood Pressure (mmHg) O2 Sat by Pulse 100 Oximetry 12/06/16 12/06/16 12/06/16 23:05 23:41 23:48 Temperature 99.4 F Pulse Rate 83 Respiratory 19 20 Rate Blood Pressure 125/64 (mmHg) O2 Sat by Pulse 92 Oximetry 12/06/16 12/07/16 12/07/16 23:54 00:10 00:54 Temperature 98.4 F Pulse Rate 81 Respiratory 23 19 19 Rate Blood Pressure 113/63 (mmHg) O2 Sat by Pulse 100 Oximetry 12/07/16 12/07/16 12/07/16 01:05 02:07 03:06 Temperature 102.5 F Pulse Rate 103 Respiratory 19 20 16 Rate Blood Pressure 98/73 (mmHg) O2 Sat by Pulse 96 Oximetry 12/07/16 12/07/16 12/07/16 03:07 04:11 05:11 Temperature Pulse Rate Respiratory 19 18 20 Rate Blood Pressure (mmHg) O2 Sat by Pulse Oximetry 12/07/16 12/07/16 12/07/16 06:18 09:15 09:16 Temperature Pulse Rate Respiratory 20 16 16 Rate Blood Pressure (mmHg) O2 Sat by Pulse Oximetry Oxygen Devices in Use Now: None Appearance: Alert, sitting up in bed. In fair spirits. Looks comfortable but somewhat anxious. Eyes: No Scleral Icterus Ears/Nose/Mouth/Throat: Clear Oropharnyx, Mucous Membranes Moist Neck: NL Appearance and Movements; NL JVP, No Thyroid Enlargement, Masses Respiratory: Symmetrical Chest Expansion and Respiratory Effort, Clear to Percussion, - - soft systolic murmur across precordium Extremities: No Edema, No Clubbing, Cyanosis, - Skin: No Rash or Ulcers, No Nodules or Sclerosis, - Neurological: Alert and Oriented x 3, NL Sensation, - - Neck supple Result Diagrams: 12/07/16 04:44 12/07/16 04:53 Additional Lab and Data: Lab Results 12/06/16 12/06/16 Range/Units 15:15 15:15 WBC 6.7 (3.5-10.8) 10^3/ul RBC 4.24 (4.0-5.4) 10^6/ul Hgb 13.4 (12.0-16.0) g/dl Hct 41 (35-47) % MCV 98 H (80-97) fL MCH 32 H (27-31) pg MCHC 33 (31-36) g/dl RDW 14 (10.5-15) % Plt Count 283 (150-450) 10^3/ul MPV 8 (7.4-10.4) um3 Neut % (Auto) 73.7 (38-83) % Lymph % (Auto) 17.9 L (25-47) % Ramsey % (Auto) 6.8 (1-9) % Eos % (Auto) 0.7 (0-6) % Baso % (Auto) 0.9 (0-2) % Absolute Neuts (auto) 4.9 (1.5-7.7) 10^3/ul Absolute Lymphs (auto) 1.2 (1.0-4.8) 10^3/ul Absolute Monos (auto) 0.5 (0-0.8) 10^3/ul Absolute Eos (auto) 0 (0-0.6) 10^3/ul Absolute Basos (auto) 0.1 (0-0.2) 10^3/ul Absolute Nucleated RBC 0 10^3/ul Nucleated RBC % 0.1 Sodium Pending Potassium Pending Chloride Pending Carbon Dioxide Pending Anion Gap Pending BUN Pending Creatinine Pending Est GFR ( Amer) Pending Est GFR (Non-Af Amer) Pending BUN/Creatinine Ratio Pending Glucose Pending Calcium Pending Total Bilirubin Pending AST Pending ALT Pending Alkaline Phosphatase Pending C-Reactive Protein Pending Total Protein Pending Albumin Pending Globulin Pending Albumin/Globulin Ratio Pending Lipase Pending Beta HCG, Quant 1.89 mIU/mL Assess/Plan/Problems-Billing Assessment: - Patient Problems (1) Fever Current Visit: Yes Status: Acute Code(s): R50.9 - FEVER, UNSPECIFIED SNOMED Code(s): 272976461 Comment: At least 10 days before admission. Note nl WBC, 4 neg blood C&S , 11/18. Two more blood C&S sent 12/06. MRI brain, CXR, echo ordered. ID consult requested. (2) Depression Current Visit: Yes Status: Acute Code(s): F32.9 - MAJOR DEPRESSIVE DISORDER , SINGLE EPISODE, UNSPECIFIED SNOMED Code(s): 34845478 Comment: Continue home meds. (3) Tourettes disorder Current Visit: Yes Status: Acute Code(s): F95.2 - TOURETTE'S DISORDER SNOMED Code(s): 3189621 Comment: Continue home meds.
--- NOTE | 2016-12-07 11:28 | RAD ---
INDICATION: Fever. COMPARISON: Comparison is made with a prior chest x-ray study from November 17, 2016. TECHNIQUE: Dual-energy PA and lateral views of the chest were obtained. FINDINGS: The heart is within normal limits in size. Mediastinal and hilar contours appear within normal limits. The lungs are clear. No pleural effusion is present. IMPRESSION: NO EVIDENCE FOR ACTIVE CARDIOPULMONARY DISEASE.
--- NOTE | 2016-12-07 11:36 | RAD ---
Indication: Headache and fever. Comparison: November 18, [address] and July 27, 2002 MRI. Technique: [employer] 1.5 Josy [id number] with GEM suite. MRI brain without contrast. Report: Diffusion series is negative for acute or subacute ischemia. Susceptibility series is negative for stigmata of hemosiderin deposition to indicate previous hemorrhage. Mild prominence of the cerebral sulci and cerebral fissures compared with the 2003 exam with increased fluid in the bilateral extra-axial spaces. Cortical veins are visualized crossing the enlarged subarachnoid spaces and allowing differentiation from subdural hygromas. Negative for ventriculomegaly. Unremarkable basal cisterns. Normal patterns of signal intensity throughout the cerebrum and posterior fossa without evidence for focal lesions. Preserved major intracranial flow-voids. Unremarkable orbital contents. Clear paranasal sinuses and mastoid air spaces. No suspicious calvarial or skull base lesion evident. Unremarkable scalp. IMPRESSION: 1. Symmetric cerebral and cerebellar atrophy with enlargement of the subarachnoid spaces with progression compared with the 2003 exam. 2. No acute intracranial process evident.
--- NOTE | 2016-12-07 13:55 | ECHO ---
Patient: MARYELLEN DIAL [facility] Rec#: [id number] : 1965 Date: 12/07/2016 Age: 51y Height: 170.2 cm / 67.0 in Weight: 64 kg / 141.1 lbs Sex: F BSA: 1.7 Room#: [facility] Admit Date#: 12/06/2016 Type: Inpatient Referring: Apolinar Haywood MD Reading: Jesus Manuel Ko MD Prefitter Doors: Dinah Galarza RN RDCS CC: Todd Rock MD Transthoracic Echocardiogram Indication: Fever BP: 104/52 HR: 73 Rhythm: NSR with PACs Findings History: Migraines, chronic pain Technical Comments: The study quality is fair. Left Ventricle: The left ventricular chamber size is normal. Global left ventricular wall motion and contractility are within normal limits. There is normal left ventricular systolic function. The estimated ejection fraction is 60-65%. Normal left ventricular diastolic filling is observed. Left Atrium: The left atrium is slightly dilated. Right Ventricle: The right ventricular chamber size and systolic function are within normal limits. Right Atrium: The right atrial cavity size is normal. Aortic Valve: The aortic valve is trileaflet. The aortic valve leaflets are mildly thickened. There is no evidence of aortic regurgitation. There is no evidence of aortic stenosis. Mitral Valve: The mitral valve leaflets are mildly thickened. There is trace to mild mitral regurgitation. There is no evidence of mitral stenosis. Tricuspid Valve: The tricuspid valve leaflets are normal. There is trace to mild tricuspid regurgitation. No pulmonary hypertension is noted. There is no tricuspid stenosis. Pulmonic Valve: The pulmonic valve appears normal. There is a trace pulmonic regurgitation. There is no pulmonic stenosis. Pericardium: There is no significant pericardial effusion. A pericardial fat pad is visualized. Aorta: There is no dilatation of the ascending aorta. There is no dilatation of the aortic arch. There is no dilation of the aortic root. Pulmonary Artery: The main pulmonary artery appears normal. Venous: The inferior vena cava appears normal in size. There is a greater than 50% respiratory change in the inferior vena cava dimension. Summary: There was not any prior study for comparison. Conclusions The left ventricular chamber size is normal. Global left ventricular wall motion and contractility are within normal limits. The estimated ejection fraction is 60-65%. The left atrium is slightly dilated. There is trace to mild mitral regurgitation. There is trace to mild tricuspid regurgitation. There is a trace pulmonic regurgitation. Measurements Name Value Normal Range RVIDd (AP) 2D 2.8 cm (0.9 - 2.6) RVDdMajor (2D) 3.1 cm (2.2 - 4.4) RAd ISD 4CH 4.6 cm (3.4 - 4.9) RA (A4C)W 3.6 cm (2.9 - 4.6) IVSd (2D) 0.8 cm (0.6 - 1) LVPWd (2D) 0.9 cm (0.6 - 1) LVIDd (2D) 4.8 cm (3.6 - 5.4) LVIDs (2D) 2.6 cm - LV FS (2D) 46 % (25 - 45) Aortic Annulus 2 cm (1.4 - 2.6) Ao root diameter (2D) 2.6 cm (2.1 - 3.5) Ascending Ao 2.9 cm (2.1 - 3.4) Aortic arch 2.5 cm (1.8 - 3.4) LA dimension (AP) 2D 3.7 cm (2.3 - 3.8) LAd ISD 4CH 4.9 cm (2.9 - 5.3) LA ISD 4CH W 4.5 cm (2.5 - 4.5) Name Value Normal Range LA ESV SP 4CH (A/L) 63 ml - LA ESV SP 2CH (A/L) 67 ml - LA ESV BP (A/L) 65 ml - LA ESV BP (A/L) index 37.5 ml/m2 - LA ESV SP 4CH (MOD) 59 ml - LA ESV SP 2CH (MOD) 63 ml - Name Value Normal Range MV E-wave Vmax 0.83 m/sec - MV deceleration time 263 msec - MV A-wave Vmax 0.81 m/sec - MV E:A ratio 1 ratio - LV septal e' Vmax 0.11 m/sec - LV lateral e' Vmax 0.12 m/sec - LV E:e' septal ratio 7.5 ratio - LV E:e' lateral ratio 6.9 ratio - Name Value Normal Range AV Vmax 1.7 m/sec - AV VTI 36.5 cm - AV peak gradient 12 mmHg - AV mean gradient 7.2 mmHg - LVOT Vmax 1 m/sec - LVOT VTI 22.9 cm - LVOT peak gradient 4.4 mmHg - LVOT mean gradient 2.7 mmHg - DONALD Vmax 0.67 m/sec - Name Value Normal Range TR Vmax 2.4 m/sec - TR peak gradient 23 mmHg - RAP 3 mmHg - RVSP 26 mmHg - IVC diameter 1.5 cm - Name Value Normal Range PV Vmax 0.78 m/sec -
[2016-12-07] MEDS: oxyCODONE TAB* 5 MG TAB PO PRN ×3 (16:21→23:13)
[2016-12-07] MEDS ORDERED: cefTRIAXone VIAL(*) 1,000 MG in NS 0.9% 50 ML* 50 ML IVPB SCH (20:00)
[2016-12-07] MEDS: DOXYcycline CAP(*) 100 MG PO SCH (20:12)
--- NOTE | 2016-12-08 01:22 | CONS ---
CONSULTATION REPORT: DATE OF CONSULTATION: 12/07/16 REQUESTING PROVIDER: iVto Smalls NP. CONSULTING SERVICE: Infectious Disease. REASON FOR CONSULTATION: Fever. IMPRESSION: 1. Recent mild self-limited salmonella enteritis, now with about a week of fever, myalgia, diffuse joint aches, neck pain, headache. No rash. Significant time outdoors at this time of the year in this area. Early Lyme is high on the list even without the rash. Her symptoms were originally felt to be a complication of her previous salmonella infection. The constipation she has come back with is resolved with a bowel prep and so she has no abdominal pain, I think enteric fever less likely. 2. Constipation. After recent diarrhea could be postinfectious irritable bowel , it could be ongoing bowel infection, though I think that is less likely. 3. Depression. RECOMMENDATIONS: Doxycycline 100 mg by mouth twice daily. I agree with stopping ceftriaxone. We will plan on 10 days empiric coverage for early Lyme. Follow her symptoms here. I do not recommend further blood testing unless she is not improving. HISTORY OF PRESENT ILLNESS: This is a 51-year-old woman, recently diagnosed with salmonella enteritis after 2 to 3 days of fever, a day and a half of diarrhea, non- typhoidal salmonella grew in her stool culture on the , blood cultures at that time were negative. She had a few days of Levaquin, her diarrhea resolved, fevers did too and then a few days later she had return of the fever which was a couple of times a day up to 101 and 102 sometimes, sweats , chills, aches, decreased appetite, most of her muscles ache and most of joints were painful. She has neck pain and headache, Tylenol helped a little bit, did not relieve it. She spends a lot of time outdoors [place] No one else has been sick at home. She has not had any travel. PAST MEDICAL HISTORY: 1. Depression. 2. Anxiety. 3. Tourette syndrome. 4. Chronic pain. 5. Migraines. 6. Status post hysterectomy. 7. Status post bilateral salpingo-oophorectomy. 8. Status post . MEDICATIONS: 1. Xanax at bedtime. 2. Fluoxetine. 3. Clonazepam 3 times a day. 4. Oxycodone. ALLERGIES: To ERYTHROMYCIN and WELLBUTRIN. FAMILY HISTORY: No recurrent infections. SOCIAL HISTORY: [place] with [place] , kid, pets. No sick contacts. REVIEW OF SYSTEMS: All negative except as noted above. PHYSICAL EXAMINATION: Vital Signs: Temperature 37, heart rate is 60, respiratory rate 16, blood pressure 103/57, O2 saturation 93% on room air. In general, she is awake, not in distress. HEENT: There is no conjunctival hemorrhage. Oropharynx without lesions. Neck is supple without nuchal rigidity. Lymph Nodes: There is no inguinal, axillary, or epitrochlear lymphadenopathy. Heart has regular rate and rhythm without murmurs, rubs, or gallops. Lungs are clear to auscultation bilaterally. Abdomen: Soft, nontender, nondistended without hepatosplenomegaly. Skin: There is no rash or splinter hemorrhages. Musculoskeletal: There is no spine tenderness to palpation. No joint synovitis. LABORATORY DATA: White blood cell count 8, hemoglobin 10, platelets 240,000. Creatinine 0.4, bilirubin 0.4, ALT 19. CRP 57. Please see impressions and recommendations outlined above. Thank you for asking me to see Ms. Terrazas in consultation. [id number]/[facility] #: [id number] RON
[2016-12-08] MEDS: oxyCODONE TAB* 5 MG TAB PO PRN (02:21)
[2016-12-08] MEDS ORDERED: traMADol TAB* 50 MG PO PRN (02:33)
[2016-12-08 05:56] LABS: Hematocrit 33 % (35-47); Hemoglobin 11.1 g/dl (12.0-16.0); Mean Corpuscular HGB Conc 34 g/dl (31-36); Mean Corpuscular Hemoglobin 32 pg (27-31); Mean Corpuscular Volume 97 fL (80-97); Mean Platelet Volume 8 um3 (7.4-10.4); Red Blood Count 3.45 10^6/ul (4.0-5.4); Red Cell Distribution Width 13 % (10.5-15); White Blood Count 5.2 10^3/ul (3.5-10.8)
[2016-12-08 06:15] LABS: BUN/Creatinine Ratio 17.4 (8-20); Calcium 8.7 mg/dL (8.6-10.3); EGFR African American 184.9 (>60); EGFR Non-African American 143.8 (>60); Potassium 3.7 mmol/L (3.5-5.0)
[2016-12-08 07:18] LABS: Erythrocyte Sed Rate 90 mm/Hr (0-30)
--- NOTE | 2016-12-08 07:45 | PN ---
Progress Note - Progress Note Date of Service: 12/08/16 Note: Time spent on discharge 40 minutes.
[2016-12-08] MEDS: FLUoxetine CAP* 20 MG PO SCH (08:27)
[2016-12-08] MEDS: DOXYcycline CAP(*) 100 MG PO SCH (08:27)
[2016-12-08] MEDS: clonazePAM TAB(*) 1 MG PO SCH (08:27)
[2016-12-08 09:25] VITALS: BP 104/79
--- NOTE | 2016-12-09 03:34 | DS ---
CC: Dr. Rock * DISCHARGE SUMMARY: DATE OF ADMISSION: 12/07/16 DATE OF DISCHARGE: 12/08/16 HOSPITAL COURSE: This 51-year-old woman presented with myalgias, abdominal pain , constipation, headache, and fever. The history is detailed in the admission note. She has a fairly complex history that began with an episode of diarrhea shortly before 11/17/16, when she made her first ED visit for this. Her stool cultures showed Salmonella. Initially she had no treatment. She returned on with abdominal pain. Eventually she saw Dr. Rock who, perhaps because of continuing symptoms, prescribed levofloxacin, which the patient said she only took for 4 days. She may have recovered for a period of time, but for last 10 days has been having fevers, headaches, some abdominal pain, overall malaise. She received ceftriaxone in the emergency room. She was started on 12/07/16, in the p.m., on doxycycline by Dr. Guajardo. His impression was that she had early Lyme disease. No testing was done as it is probably too early for reliable serologic testing. I note that she had 4 blood cultures drawn in early November and 2 more bottles of blood cultures drawn on this admission. All of which show no growth to-date. I note her Salmonella was identified as non-typhi. Laboratory data was notable for white count on the day of discharge of 5.2. It was 6.7 on admission and 8.0 on 12/07/16. Her sedimentation rate was 90 on 05/25. CRP was 166 on 11/17/16 and 57 on 12/06/16. On the day of discharge, the patient said she felt markedly better. She had her usual headache, which she said she has had for many years and did not really bother her. Her appetite was good. Her malaise was gone, as was her abdominal pain. I note that other laboratory investigations included MRI of the brain, transthoracic echocardiogram, CT scan of abdomen and pelvis, and chest x-ray, none of which showed any diagnostic findings of note. FINAL DIAGNOSES: 1. Possible early Lyme disease. 2. Depression. 3. Tourette's disorder. DISCHARGE MEDICATIONS: 1. Doxycycline 100 mg b.i.d., to complete a 10-day course. 2. Fluoxetine 80 mg daily. 3. Alprazolam 0.5 mg h.s. p.r.n. 4. Clonazepam 1 mg t.i.d. 5. Ondansetron ODT 4 mg every 8 hours p.r.n. For future reference it may be useful to get a Lyme serology in 3 or 4 weeks. [id number]/[facility] #: [id number] MTDD
== END 2016-12-08 10:15 | disposition home or self-care (01) | DRG 724 ==
LOC: ED 12:42 → MED 19:58 → OBSVTOIN 12-07 10:15
PROVIDERS: ADMIT Internal Medicine; ATTEND Internal Medicine
DX: A69.20 Lyme disease, unspecified (principal); F95.2 Tourette's disorder; F32.9 Major depressive disorder, single episode, unspecified; F41.9 Anxiety disorder, unspecified; G43.909 Migraine, unspecified, not intractable, without status migrainosus; G89.29 Other chronic pain; K59.00 Constipation, unspecified; Z90.710 Acquired absence of both cervix and uterus; Z90.722 Acquired absence of ovaries, bilateral; Z82.49 Family history of ischemic heart disease and other diseases of the circulatory system; Z82.5 Family history of asthma and other chronic lower respiratory diseases; Z88.8 Allergy status to other drugs, medicaments and biological substances; Z85.41 Personal history of malignant neoplasm of cervix uteri; Z80.0 Family history of malignant neoplasm of digestive organs; Z80.8 Family history of malignant neoplasm of other organs or systems
CPT/HCPCS: 36415; 70551; 71020; 74177; 80048; 80053; 81003; 83605; 83690; 84702; 85025; 85610; 85652; 86140; 87040; 87086; 93005; 93306; A9270-GY; G0378; J0696; J1170; J2270; J2405; Q9967